=== PATIENT | female | born 1985 | race Caucasian/White ===

== ENCOUNTER → 2018-05-19 | Outpatient (CLI) | payer BC | LOC: COL.RAD 08:34 | DX: Q51.9 Congenital malformation of uterus and cervix, unspecified (principal) | CPT/HCPCS: A9585 ==

== ENCOUNTER 2021-07-12 21:05 | Inpatient (IN) | payer BC ==
[~2021-07-12] VITALS: Ht 162.6 cm; Wt 77.3 kg
--- NOTE | 2021-07-12 21:10 | NUR ---
2109- PATIENT AND SPOUSE AMBULATORY TO THE UNIT. PATIENT OF DR. ORTEGA WHO IS A AT 40.3. PATIENT PRESENTS TO THE UNIT FOR A SROM CHECK. PATIENT SROM'D AT 2030 AT HOME. HAVING IRREGULAR CONTRACTIONS OVER THE LAST 2 DAYS. FEELING BABY MOVE LIKE NORMAL. DENIES BLEEDING. ORIENTATED TO ROOM AND CHANGED INTO CLEAN GOWN. 2114- EFM AND TOCO ON AND TRACING. VITALS TAKEN, ASSESSMENT COMPLETED. PLAN OF CARE DISCUSSED. 2119- SVE 3-/-2 WITH POSITIVE SROM CHECK. PATIENT VERBALIZED UNDERSTANDING WITH NO FURTHER QUESTIONS AND DENIES FURTHER NEEDS. CALL LIGHT WITHIN REACH.
[2021-07-12 21:30] VITALS: BP 138/84; PULSE 79; TEMP 97.8
[2021-07-12] MEDS ORDERED: NATURAL IRON65 MG (21:48)
[2021-07-12] MEDS ORDERED: PRENATAL TABLET PO (21:48)
[2021-07-12] MEDS ORDERED: PROBIOTIC BLEN1 EACH PO (21:49)
[2021-07-12 22:00] VITALS: BP 142/86; PULSE 72
[2021-07-12 22:30] VITALS: BP 126/86; PULSE 75
[2021-07-12 22:36] LABS: BASO % 0.2 % (0.0-2.0); EOS % 0.2 % (0.0-4.0); GRAN # 10.3 K/mm3 (1.4-6.5); GRAN % 83.9 % (42.2-75.2); HEMATOCRIT 38.6 % (37.0-47.0); HEMOGLOBIN 13.2 g/dl (12.5-16.0); LYMPH # 1.1 K/mm3 (1.2-3.4); LYMPH % 8.7 % (20.0-51.0); MEAN CELL VOLUME 83 fl (80.0-100.0); MEAN CORPUSCULAR HEMOGLOBIN 28 pg (27-31); MEAN CORPUSCULAR HGB CONC 34 g/dl (33.0-37.0); MEAN PLATELET VOLUME 10.1 fl (7.4-10.4); MONO # 0.8 K/mm3 (0.1-0.6); MONO % 6.5 % (1.7-9.3); PLATELET COUNT 250 K/mm3 (130-400); RED BLOOD COUNT 4.68 M/mm3 (4.10-5.30); REDCELL DISTRIBUTION WIDTH-CV 15.9 % (11.5-14.5)
[2021-07-12 23:00] VITALS: BP 131/78; PULSE 70
[2021-07-12 23:30] VITALS: BP 126/78; PULSE 75
[2021-07-13] VITALS (67 sets, daily range): BP systolic 89–166; BP diastolic 48–81; PULSE 64–134; TEMP 98.2–99
--- NOTE | 2021-07-13 03:30 | NUR ---
0330- PROVIDER ON UNIT AND REVIEWING CHART AND STRIP WITH LABOR NURSE. 0340- PROVIDER AND NURSE AT BEDSIDE TO DISCUSS FHR STRIP AND OPTIONS. PROVIDER DISCUSSED OPTIONS OF AMNIOINFUSION, , AND WAITING A LITTLE WHILE LONGER TO SEE IF PATIENT GOES INTO LABOR ACTIVELY ON HER OWN. PATIENT AGREED TO TRY AMNIOINFUSION. 0348- PROVIDER SVE /-2. 0350- IUPC PLACED. PREPERATIONS FOR AMNIOINFUSION BEGINS. 0401- AMNIOINFUSION STARTED. PER PROTOCOL INITIAL BOLUS OF 300ML OVER 30 MINUTES USING A PUMP STARTED. PATIENT DENIES FURTHER NEEDS. CALL LIGHT WITHIN REACH.
--- NOTE | 2021-07-13 07:00 | NUR ---
0655- Peripad changed, 153gm of fluid noted on pad.
--- NOTE | 2021-07-13 08:15 | NUR ---
0755- Pt repositioned to RL with LLS. FHR variable decels noted with next 3 contractions. Pt repositioned to LL at 0810. 0812- Dr Roles at nurses station, reviews strip. This RN and MD to bedside. SVE by , /1. Chux pad changed, 155mls noted on pad. Pt assisted to high-fowlers. Pt tolerated well. gives VORB to leave Pitocin at 4mu.
--- NOTE | 2021-07-13 10:15 | NUR ---
1006- Pt assisted to drastic LL with right leg hanging off side of bed. This RN supports Pt and remains at bedside with Pt. 1016- Pt assisted to same position of right side. RN remains at bedside with Pt.
--- NOTE | 2021-07-13 10:30 | NUR ---
1006- Pt assisted to drastic LL on edge of bed. Right leg drapped over side of bed for release. This RN remains at bedside supporting Pt. 1016- Pt assisted to same position RL. Pt tolerated well. 1023- FHR variable deceleration noted down to the 60's, lasting approx 55 seconds then tracing lost. 15-20 seconds later, FHR noted to be back to baseline. 1030- SVE by this RN 8-/-1. Pericare completed, Pt assisted to LL with right leg in stirp. Pt tolerated well.
--- NOTE | 2021-07-13 11:00 | NUR ---
1049- TOCO tracing spontanesouly stopped. This RN to bedside to trouble shoot, monitor noted to be in place in vagina, attempted to UA reference but would not correct. 1051- Amnioinfusion off. External TOCO applied and tracing well.
--- NOTE | 2021-07-13 13:30 | NUR ---
1312- Dr Roles and this RN at bedside. SVE by MD, Pt Complete/+1. Dr Roles remains on unit. Pt and room prepped for pushing. Faria removed without difficulty. 1321- Pt begins pushing with UCs, this RN remains at bedside, coaching Pt.
--- NOTE | 2021-07-13 13:45 | NUR ---
1342- Dr Roles at bedside to evaluate pushing. Updated that vaginal septum is right down the middle of head with pushing, feels like a band is getting tight when she pushes, unsure if septum will stretch to the side. MD evaluates with 2-3 USs. See physician note.
--- NOTE | 2021-07-13 14:26 | NUR ---
1420- Quinn Meyers, nursery RN and Faith Machado, cupola charger at bedside for delivery. 1426- of viable female . to mother's abd, tended to by nursery RN. Pitocin off. Cord clamped and cut. Cord blood and cord gases obtained. 1435- Spontaneous delivery of placenta, Pitocin on at 333ml/hr. Fundus massaged to firm by . Repair perfomed, see physician delivery note. Pericare performed. Clean chux and ice pack to perineum. Pt tolerated well.
--- NOTE | 2021-07-13 17:40 | NUR ---
1740- Pt ambulates to bathroom with assist x1. Unable to void. Pt verbalizes being dizzy. Pt assisted into wheelchair. Transfers to bed independently. Straight cath by this RN, 600mls noted. Pericare completed. Underwear and ice pack on. Pt transfers to wheelchair with minimal assist. Taken to room. Transfers into bed. Oriented to room. Call light within reach. Pt encouraged to call for assistance out of bed, understanding verbalized.
[2021-07-14 01:25] VITALS: BP 111/67; PULSE 86; TEMP 98.2
[2021-07-14 07:25] VITALS: BP 111/66; PULSE 82; TEMP 98
[2021-07-14] MEDS ORDERED: IBU800 M1 PO (08:20)
--- NOTE | 2021-07-14 10:16 | NUR ---
Initial visit; Parents thanked Prn Occupational Therapist for offering congratulations and God's blessings for the of their daughter. Prn Occupational Therapist thanked family for choosing our hospital.
[2021-07-14 12:07] VITALS: BP 111/71; PULSE 80; TEMP 97.8
[2021-07-14 16:55] VITALS: BP 112/71; PULSE 89; TEMP 97.9
[2021-07-14 20:30] VITALS: BP 106/69; PULSE 80; TEMP 98.5
[2021-07-15 07:15] VITALS: BP 109/74; PULSE 83; TEMP 97.6
== END 2021-07-15 11:35 | disposition home or self-care (01) | DRG 807 ==
LOC: LDRO 21:05 → OB 21:40 → LDR 21:40 → OB 07-13 06:10
PROVIDERS: Obstetrics & Gynecology; ADMIT Obstetrics & Gynecology
PROC: 10E0XZZ Delivery of Products of Conception, External Approach (ICD-10-PCS; principal; 2021-07-13)
PROC: 0KQM0ZZ Repair Perineum Muscle, Open Approach (ICD-10-PCS; 2021-07-13)
PROC: 0UQG7ZZ Repair Vagina, Via Natural or Artificial Opening (ICD-10-PCS; 2021-07-13)
DX: O48.0 Post-term pregnancy (principal); Z37.0 Single live birth; O99.02 Anemia complicating childbirth; D64.9 Anemia, unspecified; O65.5 Obstructed labor due to abnormality of maternal pelvic organs; Q52.10 Doubling of vagina, unspecified; O70.1 Second degree perineal laceration during delivery; O69.81X0 Labor and delivery complicated by cord around neck, without compression, not applicable or unspecified; Z3A.40 40 weeks gestation of pregnancy
CPT/HCPCS: J2590; J7030; J7120